=== PATIENT | male | born 1950 | race Caucasian/White ===

== ENCOUNTER → 2016-06-19 | Outpatient (CLI) | payer MEDICARE | LOC: RAD 08:25 | PROVIDERS: ATTEND Family Medicine | DX: Z13.6 Encounter for screening for cardiovascular disorders (principal); I10 Essential (primary) hypertension; F17.200 Nicotine dependence, unspecified, uncomplicated | CPT/HCPCS: 76706 ==

== ENCOUNTER → 2016-12-29 | Outpatient (CLI) | payer MEDICARE ==
--- NOTE | 2016-12-29 14:46 | RADIOLOGY REPORT (SQ) ---
EXAM DESCRIPTION: U/S RETROPERITON (RENAL/AORTA) COMPLETED DATE/TIME: 12/29/2016 1:55 pm REASON FOR STUDY: CKD III (N18.3) N18.3 CHRONIC KIDNEY DISEASE, STAGE 3 (MODERATE) E11.9 TYPE 2 DI ABETES MELLITUS WITHOUT COMPLICATIONS I12.9 HYPERTENSIVE CHRONIC KIDNEY DISEASE W STG 1-4/UNSP CHR COMPARISON: None. TECHNIQUE: Dynamic and static grayscale images acquired of the kidneys and bladder and recorded on P ACS. Additional selected color Doppler and spectral images recorded. LIMITATIONS: None. FINDINGS: RIGHT KIDNEY: Normal size, 13.8 cm. Normal echogenicity. No solid or suspicious masses. No hydronephrosis. No calcifications. LEFT KIDNEY: Normal size, 14.1 cm. Normal echogenicity. No solid or suspicious masses. No hydronephr osis. No calcifications. BLADDER: No masses. Ureteral jets were not seen. OTHER FINDINGS: No other significant finding. IMPRESSION: NORMAL RENAL AND BLADDER ULTRASOUND. TECHNICAL DOCUMENTATION: JOB ID: [id number] [employer]- All Rights Reserved
== END ==
LOC: RAD 13:04
PROVIDERS: ATTEND Internal Medicine Nephrology
DX: E11.22 Type 2 diabetes mellitus with diabetic chronic kidney disease (principal); I12.9 Hypertensive chronic kidney disease with stage 1 through stage 4 chronic kidney disease, or unspecified chronic kidney disease; N18.3 Chronic kidney disease, stage 3 (moderate)
CPT/HCPCS: 76770

== ENCOUNTER 2017-10-10 17:16 | Emergency (ER) | payer MEDICARE ==
[2017-10-10] MEDS ORDERED: ASPIRIN 81 MG TABLET, CHEWABLE PO ONE (17:37)
[2017-10-10] MEDS ORDERED: FUROSEMIDE INJ/PF 40 MG/4 ML SDV IV ONE (17:43)
--- NOTE | 2017-10-10 18:01 | RADIOLOGY REPORT (SQ) ---
EXAM DESCRIPTION: CHEST SINGLE VIEW COMPLETED DATE/TIME: 10/10/2017 5:48 pm REASON FOR STUDY: sob COMPARISON: June 2015 EXAM PARAMETERS: NUMBER OF VIEWS: One view. TECHNIQUE: Single frontal radiographic view of the chest acquired. RADIATION DOSE: NA LIMITATIONS: None. FINDINGS: LUNGS AND PLEURA: There is blunting of the right costophrenic angle consistent with a smal l right pleural effusion and I cannot exclude some associated atelectasis or infiltrate in the right lung base. There is some minimal linear densities in the left lung base most consistent with atelect atic changes. Remaining lung lyn are clear MEDIASTINUM AND HILAR STRUCTURES: No masses. Contour normal. HEART AND VASCULAR STRUCTURES: Cardiac silhouette is enlarged. There is mild pulmonary vascular chai estion BONES: No acute findings. HARDWARE: None in the chest. OTHER: No other significant finding. IMPRESSION: Bibasilar densities as noted above. Cardiomegaly with mild pulmonary vascular congestio n. Other findings as noted above TECHNICAL DOCUMENTATION: JOB ID: [id number] [employer]- All Rights Reserved Reading location - IP/workstation name: [email or web address]
[2017-10-10 19:47] LABS: ABSOLUTE EOSINOPHILS # (AUTO) 0.3 10^3/uL (0.0-0.6); ABSOLUTE LYMPHOCYTES (AUTO) 0.7 10^3/uL (0.5-4.7); ABSOLUTE MONOCYTES (AUTO) 0.5 10^3/uL (0.1-1.4); ABSOLUTE NEUT (AUTO) 7.5 10^3/uL (1.7-8.2); BASOPHILS % (AUTO) 0.5 % (0-2); EOSINOPHILS % (AUTO) 3.2 % (0-6); HEMATOCRIT 26.8 % (37.9-51.0); HEMOGLOBIN 9.1 g/dL (13.5-17.0); LYMPHOCYTES % (AUTO) 7.6 % (13-45); MEAN CORPUSCULAR HEMOGLOBIN 30.6 pg (27.0-33.4); MEAN CORPUSCULAR HGB CONC 33.9 g/dL (32.0-36.0); MEAN CORPUSCULAR VOLUME 90 fl (80-97); MONOCYTES % (AUTO) 5.1 % (3-13); PLATELET COUNT 140 10^3/uL (150-450); RED BLOOD COUNT 2.97 10^6/uL (4.35-5.55); RED CELL DISTRIBUTION WIDTH 12.9 % (11.5-14.0); SEGMENTED NEUTROPHILS % (AUTO) 83.6 % (42-78); TOTAL CELLS COUNTED % (AUTO) 100 %; WHITE BLOOD COUNT 8.9 10^3/uL (4.0-10.5)
[2017-10-10 20:00] LABS: ALANINE AMINOTRANSFERASE 27 U/L (21-72); ALBUMIN 3.5 g/dL (3.5-5.0); ALKALINE PHOSPHATASE 61 U/L (38-126); ANION GAP 10 (5-19); ASPARTATE AMINO TRANSFERASE 21 U/L (17-59); BILIRUBIN,DIRECT 0.4 mg/dL (0.0-0.4); BILIRUBIN,TOTAL 0.6 mg/dL (0.2-1.3); BLOOD UREA NITROGEN 47 mg/dL (7-20); CALCIUM 8.7 mg/dL (8.4-10.2); CARBON DIOXIDE 22 mmol/L (22-30); CHLORIDE 105 mmol/L (98-107); CREATINE KINASE 225 U/L (55-170); GLUCOSE 202 mg/dL (75-110); POTASSIUM 5.6 mmol/L (3.6-5.0); SODIUM 137.1 mmol/L (137-145); TOTAL PROTEIN 6.3 g/dL (6.3-8.2)
[2017-10-10 20:12] LABS: CREATINE KINASE MB 12.4 ng/mL (<4.55)
[2017-10-10 20:23] LABS: TROPONIN I 0.228 ng/mL
[2017-10-10] MEDS ORDERED: HEPARIN SOD (PORCINE) 1,000 UNIT/ML 10 ML VIAL IV ONE (20:45)
[2017-10-10] MEDS ORDERED: HEPARIN SODIUM,PORCINE/D5W 25,000 UNIT/250 ML RTUINJ IV PRN (20:45)
--- NOTE | 2017-10-10 21:30 | ER Document Report ---
ED General - General Chief Complaint: Breathing Difficulty Stated Complaint: BREATHING PROBLEMS Time Seen by Provider: 10/10/17 17:37 TRAVEL OUTSIDE OF THE [place] IN LAST 30 DAYS: No - HPI Patient complains to provider of: Difficulty breathing Notes: Patient coming in with difficulty breathing. Patient was seen earlier today and PCP had chest x-ray performed according to family members at bedside noticed a little bit of fluid in the corners of the chest concerned about new onset CHF was told to follow-up with cardiology upon arriving home became acutely worse EMS states patient was hypoxic on arrival transition the patient over to CPAP patient was also noted to be significantly hypertensive with blood pressures usually systolics of 190. Patient upon arrival denies any chest pain was transitioned over to BiPAP. Patient states history of kidney disease. Patient denies any recent changes to his medications history of hypertension diabetes chronic kidney disease patient states chronic leg swelling no recent travel. Patient states intermittent chest pain or the last few days and again denies any chest pain at this time - Related Data Allergies/Adverse Reactions: No Known Allergies Allergy (Verified 10/10/17 17:53) Past Medical History - Social History Smoking Status: Current Every Day Smoker Chew tobacco use (# tins/day): No Frequency of alcohol use: Rare Drug Abuse: None Family History: Reviewed & Not Pertinent Patient has suicidal ideation: No Patient has homicidal ideation: No - Past Medical History Cardiac Medical History: Reports: Hx Congestive Heart Failure, Hx Hypertension Neurological Medical History: Reports: Hx Cerebrovascular Accident - x3 Endocrine Medical History: Reports: Hx Diabetes Mellitus Type 2 - with neuropathy Renal/ Medical History: Denies: Hx Peritoneal Dialysis Past Surgical History: Reports: Hx Appendectomy, Hx Cardiac Surgery - carotid artery repair L side, Hx Tonsillectomy Review of Systems - Review of Systems Constitutional: No symptoms reported EENT: No symptoms reported Cardiovascular: Dyspnea, Edema Respiratory: No symptoms reported Gastrointestinal: No symptoms reported Genitourinary: No symptoms reported Male Genitourinary: No symptoms reported Musculoskeletal: No symptoms reported Skin: No symptoms reported Hematologic/Lymphatic: No symptoms reported Neurological/Psychological: No symptoms reported Physical Exam - Vital signs Vitals: Pulse Ox 88 L 10/10/17 17:16 Interpretation: Hypoxic, Tachypneic - General General appearance: Appears well, Alert - HEENT Head: Normocephalic, Atraumatic Eyes: Normal Pupils: PERRL - Respiratory Respiratory status: Respiratory distress, Tachypnea Chest status: Nontender Breath sounds: Rales Chest palpation: Normal - Cardiovascular Rhythm: Regular Heart sounds: Normal auscultation Murmur: No - Abdominal Inspection: Normal Distension: No distension Bowel sounds: Normal Tenderness: Nontender Organomegaly: No organomegaly - Back Back: Normal, Nontender - Extremities General upper extremity: Normal inspection, Nontender, Normal color, Normal ROM , Normal temperature General lower extremity: Nontender, Edema - 2-3+, Normal color, Normal ROM, Normal temperature, Normal weight bearing. No: Normal inspection - Patient with a blood containing blister of the greater toe on the left foot, Ria's sign - Neurological Neuro grossly intact: Yes Cognition: Normal Orientation: AAOx4 [place] Coma Scale Eye Opening: Spontaneous Wojciech Coma Scale Verbal: Oriented Wojciech Coma Scale Motor: Obeys Commands Wojciech Coma Scale Total: 15 Speech: Normal Motor strength normal: LUE, RUE, LLE, RLE Sensory: Normal - Psychological Associated symptoms: Normal affect, Normal mood - Skin Skin Temperature: Warm Skin Moisture: Dry Skin Color: Normal Course - Re-evaluation Re-evalutation: 10/11/17 00:44 Chest x-ray laboratory findings are consistent with CHF. Patient does have slight elevation of troponin 0.2. Unclear this is due to underlying ischemia more or less demand. Clinical suspicion is more likely this is due to the patient with new onset CHF. Patient was started on a heparin drip because of the elevation in troponin. Patient did have a trial without BiPAP however upon reevaluation approximately 1 hour after BiPAP slightly tachypneic and also having some word dyspnea therefore although he did not have any hypoxia I did place the patient back on BiPAP. Lasix was given was approximately 600 cc of urinary output. The discussed the patient's case with Dr. Sharp who agrees to set the patient in transfer. - Vital Signs Vital signs: Temp Pulse Resp BP Pulse Ox 97.9 F 82 19 137/75 H 99 10/10/17 17:21 10/10/17 22:10 18 00:11 10/10/17 23:00 10/11/17 00:11 - Laboratory Result Diagrams: 10/10/17 19:15 10/10/17 19:15 Laboratory results interpreted by me: 10/10/17 10/10/17 10/10/17 19:15 19:15 19:15 RBC 2.97 L Hgb 9.1 L Hct 26.8 L Plt Count 140 L Seg Neutrophils % 83.6 H Lymphocytes % 7.6 L Potassium 5.6 H BUN 47 H Creatinine 2.00 H Est GFR ( Amer) 40 L Est GFR (Non-Af Amer) 33 L Glucose 202 H POC Glucose Creatine Kinase 225 H CK-MB (CK-2) 12.40 H NT-Pro-B Natriuret Pep 8750 H 10/10/17 23:41 RBC Hgb Hct Plt Count Seg Neutrophils % Lymphocytes % Potassium BUN Creatinine Est GFR ( Amer) Est GFR (Non-Af Amer) Glucose POC Glucose 180 H Creatine Kinase CK-MB (CK-2) NT-Pro-B Natriuret Pep Critical Care Note - Critical Care Note Total time excluding time spent on procedures (mins): 35 Comments: Multiple evaluation patient with possible in NSTEMI new-onset CHF requiring BiPAP for management Discharge - Discharge Clinical Impression: Diabetes, New onset of congestive heart failure, Non-STEMI (non-ST elevated myocardial infarction), Chronic kidney disease, Essential hypertension, Neuropathy Condition: Good Disposition: [facility] Referrals: ANA AKHTAR MD [Primary Care Provider] - Follow up as needed
--- NOTE | 2017-10-10 21:47 | EKG REPORT ---
SEVERITY:- ABNORMAL ECG - SINUS OR ECTOPIC ATRIAL RHYTHM VENTRICULAR PREMATURE COMPLEX FIRST DEGREE AV BLOCK RBBB AND LAFB : Confirmed by: Codi Vanessa MD 10-Oct-2017 21:46:18
[2017-10-10 22:24] LABS: INTERNATIONAL RATION (INR) 1.07; PROTHROMBIN TIME 14.4 SEC (11.4-15.4)
[2017-10-10 22:25] LABS: PARTIAL THROMBOPLASTIN TIME 31.5 SEC (23.5-35.8)
[2017-10-10] MEDS ORDERED: HEPARIN SOD (PORCINE) 1,000 UNIT/ML 10 ML VIAL IV PRN (23:46)
[2017-10-11 03:49] VITALS: BP 128/74
== END 2017-10-11 01:50 | disposition short-term general hospital (02) ==
LOC: ER 17:16
DX: I21.4 Non-ST elevation (NSTEMI) myocardial infarction (principal); R06.00 Dyspnea, unspecified; E11.40 Type 2 diabetes mellitus with diabetic neuropathy, unspecified; I50.9 Heart failure, unspecified; E11.22 Type 2 diabetes mellitus with diabetic chronic kidney disease; I13.0 Hypertensive heart and chronic kidney disease with heart failure and stage 1 through stage 4 chronic kidney disease, or unspecified chronic kidney disease; N18.9 Chronic kidney disease, unspecified; F17.200 Nicotine dependence, unspecified, uncomplicated
CPT/HCPCS: 93005; 99285; 51702; 96375; 96365; 96366; 36415; 87040; 82553; 82962; 82550; 83735; 85025; 85610; 85730; 80053; 84484; 83880; 71045; 93010; 94660 ×2; J1644 ×2; A9270; J1940

== ENCOUNTER 2019-10-13 12:17 | Emergency (ER) | payer MEDICARE ==
--- NOTE | 2019-10-13 13:25 | RADIOLOGY REPORT (SQ) ---
EXAM DESCRIPTION: CHEST SINGLE VIEW IMAGES COMPLETED DATE/TIME: 10/13/2019 1:13 pm REASON FOR STUDY: Shortness of breath COMPARISON: 06/30/2015 EXAM PARAMETERS: NUMBER OF VIEWS: One view. TECHNIQUE: Single frontal radiographic view of the chest acquired. RADIATION DOSE: NA LIMITATIONS: None. FINDINGS: LUNGS AND PLEURA: No opacities, masses or pneumothorax. No pleural effusion. MEDIASTINUM AND HILAR STRUCTURES: No masses. Contour normal. HEART AND VASCULAR STRUCTURES: Heart normal in size. Normal vasculature. BONES: No acute findings. HARDWARE: Sternotomy wires are in place. OTHER: No other significant finding. IMPRESSION: NO ACUTE RADIOGRAPHIC FINDING IN THE CHEST. TECHNICAL DOCUMENTATION: JOB ID: [id number] [employer]- All Rights Reserved Reading location - IP/workstation name: [email or web address]
[2019-10-13 13:54] LABS: ABSOLUTE EOSINOPHILS # (AUTO) 0.2 10^3/uL (0.0-0.6); ABSOLUTE LYMPHOCYTES (AUTO) 1.4 10^3/uL (0.5-4.7); ABSOLUTE MONOCYTES (AUTO) 0.6 10^3/uL (0.1-1.4); ABSOLUTE NEUT (AUTO) 4.6 10^3/uL (1.7-8.2); BASOPHILS % (AUTO) 0.3 % (0-2); HEMATOCRIT 28.5 % (37.9-51.0); HEMOGLOBIN 10.1 g/dL (13.5-17.0); MEAN CORPUSCULAR HEMOGLOBIN 32.8 pg (27.0-33.4); MEAN CORPUSCULAR HGB CONC 35.4 g/dL (32.0-36.0); MEAN CORPUSCULAR VOLUME 93 fl (80-97); MONOCYTES % (AUTO) 9.5 % (3-13); PLATELET COUNT 194 10^3/uL (150-450); RED BLOOD COUNT 3.08 10^6/uL (4.35-5.55); RED CELL DISTRIBUTION WIDTH 13.9 % (11.5-14.0); SEGMENTED NEUTROPHILS % (AUTO) 67.2 % (42-78); TOTAL CELLS COUNTED % (AUTO) 100 %; WHITE BLOOD COUNT 6.8 10^3/uL (4.0-10.5)
--- NOTE | 2019-10-13 14:01 | ER Document Report ---
ED General - General Chief Complaint: Chest Pain Stated Complaint: CHEST PAIN Time Seen by Provider: 10/13/19 13:19 Primary Care Provider: ALYX ANTONIO NP [Primary Care Provider] - Follow up as needed TRAVEL OUTSIDE OF THE [place] IN LAST 30 DAYS: No - HPI Notes: Patient is a 69-year-old male, an extremely poor historian, who presents to the emergency department for evaluation of chest pain. He points to a singular area just lateral to his inferior sternum on the left. He cannot tell me what it feels like other than to state it hurts. It started when he was trying to go to sleep last night. He states this been intermittent since then. He cannot tell me how long it comes on, how long it goes away. He cannot tell me any aggravating or relieving factors. He denies any shortness of breath. He was nauseated for a few days intermittently prior to the pain, but denies this being associated with the pain. The patient also states he had some pain in his right posterior arm that he described as an ache to a family member. He states that pain has improved. He states to me that he feels he is woozy, it must be because his blood sugar is low, he is a diabetic and has not eaten yet today. - Related Data Allergies/Adverse Reactions: No Known Allergies Allergy (Verified 10/10/17 17:53) Home Medications: List reviewed Past Medical History - General Information source: Patient, Relative - Social History Smoking Status: Never Smoker Family History: Reviewed & Not Pertinent - Past Medical History Cardiac Medical History: Reports: Hx Congestive Heart Failure, Hx Hypertension Neurological Medical History: Reports: Hx Cerebrovascular Accident - x3 Endocrine Medical History: Reports: Hx Diabetes Mellitus Type 1 - Type 1.5, Hx Diabetes Mellitus Type 2 - with neuropathy Renal/ Medical History: Denies: Hx Peritoneal Dialysis Past Surgical History: Reports: Hx Appendectomy, Hx Tonsillectomy, Hx Vascular Surgery - Left carotid artery Review of Systems - Review of Systems Constitutional: See HPI Cardiovascular: See HPI Gastrointestinal: See HPI -: Yes All other systems reviewed and negative Physical Exam - Vital signs Vitals: Resp Pulse Ox 16 93 10/13/19 12:33 10/13/19 12:33 - Notes Notes: This is a 69-year-old gentleman, who appears his stated age, no acute distress. Vital signs reviewed, please refer to chart. Head is normocephalic, atraumatic. Pupils equal round, reactive to light. Neck is supple without meningismus. Heart is regular rate and rhythm. Lungs are clear to auscultation bilaterally. Chronic appearing skin changes and scaling to the anterior chest, but no skin changes associated with the area of pain. Pain is not reproducible. Abdomen is soft, nontender, normoactive bowel sounds throughout. 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 Patient is awake and alert, no gross facial asymmetry, moves all 4 extremities spontaneously. Course - Re-evaluation Re-evalutation: 10/13/19 14:06 Patient presents to the emergency department for evaluation. He is an extremely vague historian in regards to the details about his chest pain. He was placed on a quality assurance monitor chassis and laboratory investigations, imaging, EKG were ordered. His EKG shows no change when compared to prior study. Chest x-ray unremarkable. Awaiting laboratory investigations. Patient is currently stable, we will continue to monitor. 10/13/19 14:07 Please note that Accu-Chek was ordered as the patient continued to state that he needed food, he was woozy as his blood sugar must be low. His blood glucose came back in the 160s. I did offer him crackers. 10/13/19 18:09 Patient's chest pain resolved. His delta troponin was only 5%. I told him he should call his wire coating operator metal for follow-up tomorrow morning, arrange a follow-up appointment this week. He voiced understanding. Otherwise he is to continue his home medications, return to the emergency department for worsening or new concerning symptoms of any sort. - Vital Signs Vital signs: Temp Pulse Resp BP Pulse Ox 98.5 F 83 13 184/93 H 99 10/13/19 12:40 10/13/19 12:36 10/13/19 17:01 10/13/19 17:01 10/13/19 17:01 - Laboratory Result Diagrams: 10/13/19 13:18 10/13/19 13:18 Laboratory results interpreted by me: 10/13/19 10/13/19 10/13/19 13:18 13:18 13:57 RBC 3.08 L Hgb 10.1 L Hct 28.5 L Sodium 133.6 L BUN 25 H Creatinine 1.56 H Est GFR ( Amer) 53 L Est GFR (MDRD) Non-Af 44 L Glucose 149 H POC Glucose 167 H Total Protein 6.1 L Albumin 3.2 L - Diagnostic Test Radiology reviewed: Reports reviewed Radiology results interpreted by me: 10/13/19 14:06 Chest X-Ray 10/13/19 12:36 IMPRESSION: NO ACUTE RADIOGRAPHIC FINDING IN THE CHEST. - EKG Interpretation by Me Additional EKG results interpreted by me: 10/13/19 14:06 Sinus mechanism with a rate of 80 bpm, PVC noted. First-degree AV block. Right bundle branch block, left anterior fascicular block. No change compared to prior study. Discharge - Discharge Clinical Impression: Chest pain Qualifiers: Chest pain type: unspecified Qualified Code(s): R07.9 - Chest pain, unspecified Condition: Stable Disposition: HOME, SELF-CARE Instructions: Chest Pain of Unclear Cause ([facility]), Calcium Channel Blockers ([facility]) Additional Instructions: Continue your home educations as prescribed. Follow-up with your wire coating operator metal, call first thing in the morning to arrange a follow-up appointment this week. If you develop worsened pain, or new or concerning symptoms of any sort, please return immediately to the emergency department for evaluation. Referrals: ALYX ANTONIO NP [Primary Care Provider] - Follow up as needed
[2019-10-13 14:22] LABS: ALBUMIN 3.2 g/dL (3.5-5.0); ALKALINE PHOSPHATASE 77 U/L (38-126); ANION GAP 5 (5-19); ASPARTATE AMINO TRANSFERASE 23 U/L (17-59); BILIRUBIN,TOTAL 0.5 mg/dL (0.2-1.3); BLOOD UREA NITROGEN 25 mg/dL (7-20); CALCIUM 8.5 mg/dL (8.4-10.2); CARBON DIOXIDE 25 mmol/L (22-30); CHLORIDE 104 mmol/L (98-107); CREATINE KINASE 64 U/L (55-170); GLUCOSE 149 mg/dL (75-110); POTASSIUM 4.1 mmol/L (3.6-5.0); TOTAL PROTEIN 6.1 g/dL (6.3-8.2)
[2019-10-13 14:32] LABS: CREATINE KINASE MB 3.88 ng/mL (<4.55); TROPONIN I 0.019 ng/mL
[2019-10-13 18:20] VITALS: BP 180/92
--- NOTE | 2019-10-14 14:29 | EKG REPORT ---
SEVERITY:- ABNORMAL ECG - SINUS OR ECTOPIC ATRIAL RHYTHM VENTRICULAR PREMATURE COMPLEX FIRST DEGREE AV BLOCK RBBB AND LAFB : Confirmed by: Orestes Parra MD 14-Oct-2019 14:29:06
== END 2019-10-13 18:22 | disposition home or self-care (01) ==
LOC: ER 12:17
DX: R07.9 Chest pain, unspecified (principal); R11.0 Nausea; M79.601 Pain in right arm; I50.9 Heart failure, unspecified; I10 Essential (primary) hypertension; E11.9 Type 2 diabetes mellitus without complications
CPT/HCPCS: 36415; 71045; 80053; 82550; 82553; 82962; 84484; 85025; 93005; 93010; 99285

== ENCOUNTER 2019-11-05 11:23 | Day surgery (SDC) | payer MEDICARE ==
[~2019-11-05 11:23] MED LIST: CHONDR SU A NA/HYALUR INTRAOC KIT (SURGICARE) ONE; EPINEPHRINE INJ/PF 1 MG/1 ML AMPULE ONE; KETOROLAC TROMETHAMINE 0.45% 4 DROP/0.4 ML DROPERETTE OD PRN; LIDOCAINE 1%/PHENYLEPHRINE 1.5% 0.8 ML SYRINGE ONE
[2019-11-05] MEDS ORDERED: ONDANSETRON HCL INJ/PF 4 MG/2 ML SDV ONE (11:27)
[2019-11-05] MEDS ORDERED: FENTANYL CITRATE INJ/PF 100 MCG/2 ML AMPUL ONE ×2 (11:27→12:00)
[2019-11-05] MEDS ORDERED: MIDAZOLAM 2 MG/2 ML INJ ONE ×2 (11:27→12:00)
[2019-11-05] MEDS: CYCLOPENTOLATE 0.2%/PHENYLEPHRINE 1% OPH SOLN 2 ML OD PRN ×3 (11:42→12:02)
[2019-11-05] MEDS: TROPICAMIDE 1% OPH SOLN 15 ML OD PRN ×3 (11:42→12:02)
[2019-11-05] MEDS: BESIFLOXACIN HCL 0.6% OPH SUSP 5 ML BOTTLE OD PRN ×4 (11:42→12:26)
[2019-11-05] MEDS: TETRACAINE HCL 0.5% OPH SOLN 4 ML OD PRN ×3 (11:43→12:05)
[2019-11-05] MEDS: DORZOLAMIDE HCL 2%/TIMOLOL MALEAT 0.5% OPH SOLN 10 ML OD PRN ×2 (12:26)
--- NOTE | 2019-11-05 13:55 | Operative Report ---
Operative Report-[facility] Operative Report: DATE OF SURGERY: November 05, 2019 PREOPERATIVE DIAGNOSIS: NUCLEAR CATARACT, RIGHT EYE. Myopia POSTOPERATIVE DIAGNOSIS: NUCLEAR CATARACT, RIGHT EYE. Myopia PROCEDURE PERFORMED: PHACOEMULSIFICATION WITH POSTERIOR CHAMBER INTRAOCULAR LENS IMPLANT, RIGHT EYE. Complex with ring SURGEON: Gal Espinosa DO MEDICATIONS AND ANESTHESIA: Versed: IV Versed Tetracaine drops: 1 to 2 drops given as needed COMPLICATION: None INDICATIONS FOR SURGERY: Medical necessity: Best corrected visual acuity worse than 20/40 secondary to cataracts with impairment of ability to carry out needs or desired activities, blurred vision, visual distortion, reduced contrast sensitivity and/or glare with association functional impairment and supporting documentation/testing, and cataracts causing symptomatic impairment of visual functions not corrected with tolerable changes in glasses or contact lenses interfering with activities of daily life. PROCEDURE: Consent: The risks, benefits and alternatives of this procedures was discussed with the patient. The patient read and signed the consent forms, was identified and was seated in the exam chair. IOL: MX 60 E 18.0 IOL Diopters: Phacoemulsification with posterior chamber intraocular lens implant: The face was prepped with 5% povidone iodine solution, and a few drops of 5% povidone iodine solution was instilled into the inferior fornix. A non-fenestrated drape was placed over the eye and the lids were parted with the speculum. A paracentesis was made with a 15 degree blade, and 1% lidocaine MPF followed by viscoelastic was injected into the anterior chamber. A 2.4 mm metal micro- keratome was used to create a temporal clear corneal incision. A circular anterior capsulorrhexis was created, followed by hydro-dissection and hydro- delineation. The phacoemulsification hand piece was inserted and the nucleus was removed with the Phaco chop technique. The irrigation-aspiration hand piece was used to remove the residual cortex, and vacuum the posterior capsule. The capsular bag was inflated and viscoelastic and the above-mentioned IOL was injected into the eye with care to insert both leaning and trailing haptics in the capsular bag. The irrigation/aspiration hand piece was reinserted to remove residual viscoelastic from the capsular bag and anterior chamber. The corneal incision was hydrated, and anterior chamber was inflated with sterile BSS via the paracentesis site, and found to be watertight. During this case a ring was used to expand the pupil at the end of the case the ring was removed Postop medication: 1 drop of prednisolone into operative by followed by 1 drop of Cosopt into operative eye followed by 1 drop of Besivance intraoperative by other:
== END 2019-11-05 12:58 | disposition home or self-care (01) ==
LOC: SC 11:23
PROVIDERS: ATTEND Ophthalmology
DX: H25.11 Age-related nuclear cataract, right eye (principal); E11.9 Type 2 diabetes mellitus without complications; E78.00 Pure hypercholesterolemia, unspecified; I25.10 Atherosclerotic heart disease of native coronary artery without angina pectoris; I11.0 Hypertensive heart disease with heart failure; I50.9 Heart failure, unspecified; Z86.73 Personal history of transient ischemic attack (TIA), and cerebral infarction without residual deficits; I25.2 Old myocardial infarction; Z79.899 Other long term (current) drug therapy; Z79.82 Long term (current) use of aspirin; Z79.4 Long term (current) use of insulin; I49.9 Cardiac arrhythmia, unspecified
CPT/HCPCS: 82962; 66982; V2632; J2250; J3490 ×3; A9270; J0171; J3010; 142; J2405

== ENCOUNTER 2019-11-19 11:12 | Day surgery (SDC) | payer MEDICARE ==
[~2019-11-19 11:12] MED LIST changes: +FENTANYL CITRATE INJ/PF 100 MCG/2 ML AMPUL ONE; -KETOROLAC TROMETHAMINE 0.45% 4 DROP/0.4 ML DROPERETTE OD PRN; +KETOROLAC TROMETHAMINE 0.45% 4 DROP/0.4 ML DROPERETTE OS PRN; +MIDAZOLAM 2 MG/2 ML INJ ONE; +ONDANSETRON HCL INJ/PF 4 MG/2 ML SDV ONE
[2019-11-19] MEDS: TROPICAMIDE 1% OPH SOLN 15 ML OS PRN ×3 (11:37→11:57)
[2019-11-19] MEDS: BESIFLOXACIN HCL 0.6% OPH SUSP 5 ML BOTTLE OS PRN ×4 (11:37→12:22)
[2019-11-19] MEDS: CYCLOPENTOLATE 0.2%/PHENYLEPHRINE 1% OPH SOLN 2 ML OS PRN ×3 (11:37→11:57)
[2019-11-19] MEDS: TETRACAINE HCL 0.5% OPH SOLN 4 ML OS PRN ×3 (11:37→12:04)
[2019-11-19] MEDS: DORZOLAMIDE HCL 2%/TIMOLOL MALEAT 0.5% OPH SOLN 10 ML OS PRN ×2 (12:17→12:22)
--- NOTE | 2019-11-19 13:10 | Operative Report ---
Operative Report-[facility] Operative Report: DATE OF SURGERY: November 19, 2019 PREOPERATIVE DIAGNOSIS: NUCLEAR CATARACT, LEFT EYE. With miosis POSTOPERATIVE DIAGNOSIS: NUCLEAR CATARACT, LEFT EYE. With miosis PROCEDURE PERFORMED: PHACOEMULSIFICATION WITH POSTERIOR CHAMBER INTRAOCULAR LENS IMPLANT, LEFT EYE. Complex SURGEON: Gal Espinosa DO MEDICATIONS AND ANESTHESIA: Versed: IV Versed Tetracaine drops: 1 to 2 drops given as needed COMPLICATION: None INDICATIONS FOR SURGERY: Medical necessity: Best corrected visual acuity worse than 20/40 secondary to cataracts with impairment of ability to carry out needs or desired activities, blurred vision, visual distortion, reduced contrast sensitivity and/or glare with association functional impairment and supporting documentation/testing, and cataracts causing symptomatic impairment of visual functions not corrected with tolerable changes in glasses or contact lenses interfering with activities of daily life. PROCEDURE: Consent: The risks, benefits and alternatives of this procedures was discussed with the patient. The patient read and signed the consent forms, was identified and was seated in the exam chair. IOL: MX 60 E 18.5 IOL Diopters: Phacoemulsification with posterior chamber intraocular lens implant: The face was prepped with 5% povidone iodine solution, and a few drops of 5% povidone iodine solution was instilled into the inferior fornix. A non-fenestrated drape was placed over the eye and the lids were parted with the speculum. A paracentesis was made with a 15 degree blade, and 1% lidocaine MPF followed by viscoelastic was injected into the anterior chamber. A 2.4 mm metal micro- keratome was used to create a temporal clear corneal incision. A circular anterior capsulorrhexis was created, followed by hydro-dissection and hydro- delineation. The phacoemulsification hand piece was inserted and the nucleus was removed with the Phaco chop technique. The irrigation-aspiration hand piece was used to remove the residual cortex, and vacuum the posterior capsule. The capsular bag was inflated and viscoelastic and the above-mentioned IOL was injected into the eye with care to insert both leaning and trailing haptics in the capsular bag. The irrigation/aspiration hand piece was reinserted to remove residual viscoelastic from the capsular bag and anterior chamber. The corneal incision was hydrated, and anterior chamber was inflated with sterile BSS via the paracentesis site, and found to be watertight. In addition a ring was used to dilate the pupil, the ring was removed removed at the end of the case Postop medication:1 drop of prednisolone into operative by followed by 1 drop of Cosopt into operative eye followed by 1 drop of Besivance intraoperative by Other:
== END 2019-11-19 12:55 | disposition home or self-care (01) ==
LOC: SC 11:12
PROVIDERS: ATTEND Ophthalmology
DX: H25.12 Age-related nuclear cataract, left eye (principal); H57.03 Miosis; Z98.41 Cataract extraction status, right eye; E78.00 Pure hypercholesterolemia, unspecified; Z86.73 Personal history of transient ischemic attack (TIA), and cerebral infarction without residual deficits; I25.10 Atherosclerotic heart disease of native coronary artery without angina pectoris; I11.0 Hypertensive heart disease with heart failure; I50.9 Heart failure, unspecified; E11.9 Type 2 diabetes mellitus without complications; Z79.82 Long term (current) use of aspirin; Z79.899 Other long term (current) drug therapy; Z79.4 Long term (current) use of insulin; F17.210 Nicotine dependence, cigarettes, uncomplicated; I49.9 Cardiac arrhythmia, unspecified
CPT/HCPCS: 66982; 82962; V2632; J2250; J3490 ×3; A9270; J0171; J2405; 142; J3010

== ENCOUNTER → 2019-12-03 | Outpatient (CLI) | payer MEDICARE ==
[2019-12-03 17:03] LABS: ABSOLUTE EOSINOPHILS # (AUTO) 0.7 10^3/uL (0.0-0.6); ABSOLUTE LYMPHOCYTES (AUTO) 1.9 10^3/uL (0.5-4.7); ABSOLUTE MONOCYTES (AUTO) 0.4 10^3/uL (0.1-1.4); ABSOLUTE NEUT (AUTO) 3.8 10^3/uL (1.7-8.2); BASOPHILS % (AUTO) 0.6 % (0-2); HEMATOCRIT 29.8 % (37.9-51.0); HEMOGLOBIN 10.6 g/dL (13.5-17.0); LYMPHOCYTES % (AUTO) 27.4 % (13-45); MEAN CORPUSCULAR HEMOGLOBIN 32.6 pg (27.0-33.4); MEAN CORPUSCULAR HGB CONC 35.5 g/dL (32.0-36.0); MEAN CORPUSCULAR VOLUME 92 fl (80-97); MONOCYTES % (AUTO) 6.6 % (3-13); PLATELET COUNT 155 10^3/uL (150-450); RED BLOOD COUNT 3.25 10^6/uL (4.35-5.55); RED CELL DISTRIBUTION WIDTH 14.6 % (11.5-14.0); SEGMENTED NEUTROPHILS % (AUTO) 55.4 % (42-78); TOTAL CELLS COUNTED % (AUTO) 100 %; WHITE BLOOD COUNT 6.8 10^3/uL (4.0-10.5)
[2019-12-03 17:20] LABS: ANION GAP 7 (5-19); BLOOD UREA NITROGEN 38 mg/dL (7-20); CALCIUM 8.9 mg/dL (8.4-10.2); CARBON DIOXIDE 27 mmol/L (22-30); CHLORIDE 102 mmol/L (98-107); GLUCOSE 145 mg/dL (75-110); IRON(TIBC) 74.3 ug/dL (49-181); PHOSPHORUS 4.9 mg/dL (2.5-4.5); POTASSIUM 4.1 mmol/L (3.6-5.0)
[2019-12-03 17:21] LABS: AMORPHOUS SEDIMENT,URINE TRACE /HPF; APPEARANCE,URINE CLOUDY; BILIRUBIN,URINE NEGATIVE (NEGATIVE); COLOR,URINE YELLOW; GLUCOSE, URINE NEGATIVE (NEGATIVE); KETONES,URINE NEGATIVE (NEGATIVE); LEUKOCYTE ESTERASE,URINE LARGE (NEGATIVE); NITRITE,URINE NEGATIVE (NEGATIVE); PROTEIN,URINE NEGATIVE (NEGATIVE); UROBILINOGEN,URINE NEGATIVE mg/dL (<2.0)
[2019-12-03 17:42] LABS: UR PRO/CREAT RATIO RESULT 0.4 mg/mg (0.0-0.2); URINE CREATININE 61.2 mg/dL (22-328); URINE PROTEIN 21.6 mg/dL (<12)
== END ==
LOC: OD 16:30
PROVIDERS: ATTEND Physician Assistant Medical
DX: N18.3 Chronic kidney disease, stage 3 (moderate) (principal); D63.1 Anemia in chronic kidney disease; R80.9 Proteinuria, unspecified
CPT/HCPCS: 36415; 80048; 81001; 82570; 82728; 83540; 83550; 83970; 84100; 84156; 85025